=== PATIENT | male | born 1975 | race Hispanic/Latino ===

== ENCOUNTER 2021-07-02 10:55 | Emergency (ER) | payer OTHER ==
[2021-07-02] MEDS ORDERED: Lidocaine 1% (PF) 30 ML VIAL ONE (11:11)
[2021-07-02] MEDS ORDERED: Boostrix 0.5 ML (Tdap) VIAL ONE (11:11)
== END 2021-07-02 11:39 | disposition home or self-care (01) ==
LOC: NAV ERS 10:55
DX: S61.012A Laceration without foreign body of left thumb without damage to nail, initial encounter (principal); I10 Essential (primary) hypertension; W31.89XA Contact with other specified machinery, initial encounter; Z23 Encounter for immunization; Z79.899 Other long term (current) drug therapy
CPT/HCPCS: 12001; 90471; 90715; J2001

== ENCOUNTER 2021-07-09 12:45 | Emergency (ER) | payer OTHER | END 2021-07-09 13:36 | disposition home or self-care (01) | LOC: NAV ERS 12:45 | DX: S61.012D Laceration without foreign body of left thumb without damage to nail, subsequent encounter (principal); I10 Essential (primary) hypertension ==